=== PATIENT | male | born 1995 | race Caucasian/White ===

== ENCOUNTER 2016-06-29 12:50 | Emergency (ER) | payer BC ==
[~2016-06-29] VITALS: Ht 193 cm; Wt 105.3 kg
[2016-06-29 12:56] VITALS: TEMP 98.1
[2016-06-29 14:29] VITALS: BP 119/75; PULSE 52
== END 2016-06-29 14:30 | disposition home or self-care (01) ==
LOC: COL.ER 12:50
DX: S63.601A Unspecified sprain of right thumb, initial encounter (principal); W19.XXXA Unspecified fall, initial encounter; Y92.009 Unspecified place in unspecified non-institutional (private) residence as the place of occurrence of the external cause